=== PATIENT | female | born 1995 | race Caucasian/White ===

== ENCOUNTER 2020-09-16 13:50 | Inpatient (IN) | payer OTHER ==
[~2020-09-16 13:50] MED LIST: AUGMENTIN 875-1 EACH PO; BIRTH CONTROL PILL; CAPSAICIN60 GM TOP; CRUTCH1 EACH MISC; GABAPENTIN300 MG PO; GUAIATUSSIN AC118 ML PO; IBUPROFEN600 MG PO; IBUPROFEN800 MG PO; INDOMETHACIN25 MG PO; KEFLEX500 MG PO; NORCO 5-325 TA1 EACH PO; NUVARING VAGIN1 EACH VAGINAL; PERCOCET 5-3251 EACH PO; TRAZODONE HCL50 MG PO; XULANE PATCH1 EACH TD
--- NOTE | 2020-09-16 18:09 | NUR ---
RT COLLECTED COVID 19 SWAB WITH NO COMPLICATIONS. RT USED THE CEPHEID RAPID TEST THROUGH [facility] PER DR REQUEST AT THIS TIME.
--- NOTE | 2020-09-22 14:41 | PATH ---
[facility] [address], [place] [address] Signed SPECIMEN(S): A PLACENTA, 3RD TRIMESTER SPECIMEN SOURCE: A. PLACENTA, 3RD TRIMESTER CLINICAL HISTORY: Mother's age: 25. OB history: G1, P0. Gestational age: 40 05/27. Infant's weight: 6 pounds 1 ounce. score: 8/9. Rh positive. Antibody screen: negative. Maternal serologies: Rubella immune, RPR nonreactive, hepatitis screen negative, GBS negative. Specific issues of concern: IUGR. FINAL PATHOLOGIC DIAGNOSIS: Placenta, third trimester: - Mature 377 gram placenta (approximately 8th percentile for estimated gestational age) with three-vessel umbilical cord. - Negative for significant chorioamnionitis or funisitis. - Villous and perivillous fibrin deposition and calcification. - Negative for significant placental disc infarction. JVR:cml:C2NR MICROSCOPIC EXAMINATION: Histologic sections of all submitted blocks are examined by light microscopy. These findings, together with the gross examination, support the pathologic diagnosis. GROSS DESCRIPTION: The specimen, labeled "Minor Bergeron," and designated on the requisition "placenta," is received fresh and placed in formalin and consists of a salguero discoid placenta with the following parameters: Umbilical cord: Insertion paracentric, measurement 16.5 x 1.6 cm; trivascular. Cord coiling index (per 10 cm): One. Lesions: Not grossly identified. Membranes: Insertion site: Marginal, pink and translucent, rupture site grossly unremarkable. Intact. Other: Not grossly identified. Chorionic Plate: Normal radiating vascular pattern, blue-purple and shiny. Lesions: Not grossly identified. Other: Not grossly identified. Maternal Surface: Normal cotyledons, focally disrupted. Lesions: Not grossly identified. Measurement: 17.1 x 13.6 x 2.6 cm. Weight (trimmed): 377 g Cut Surface: Maroon and spongy. Lesions: Focal areas of calcifications. Basal PATIENT NAME: MINOR BERGERON PATHOLOGY DATE OF : 89 REPORT #: [id number] PHYSICIAN: DEXTER ERNANDEZ PCP: MAURICE ANDERSON REPORT IS CONFIDENTIAL AND NOT TO BE RELEASED WITHOUT AUTHORIZATION [facility] [address], [place] [address] Signed plate fibrin 0.1 cm in thickness. Other Findings: Not grossly identified. Cassette Summary: (A1) membranes and umbilical cord (A2) area of calcifications (A3) placenta parenchyma (A4) placenta parenchyma. FB (under the direct supervision of a pathologist) The Gross Description was prepared using a voice recognition system. The report was reviewed for accuracy; however, sound-alike word errors, addition and/or deletions may occur. If there is any question about this report, please contact Client Services. PERFORMING LABORATORY: The technical component was performed by [facility], [address] [place] [id number] (Senior [employer] Trader: Bianca Deal MD; CLIA# [id number]). Professional interpretation was performed by [facility], [facility], [address] [place] [id number]. Diagnostician: Star Gonzalez MD Pathologist Electronically Signed 09/22/2020 Copies: ~ PATIENT NAME: MINOR BERGERON PATHOLOGY DATE OF : [birth year] REPORT #: [id number] PHYSICIAN: DEXTER PATHOLOGY PCP: MAURICE ANDERSON REPORT IS CONFIDENTIAL AND NOT TO BE RELEASED WITHOUT AUTHORIZATION
== END 2020-09-19 15:30 | disposition home or self-care (01) | DRG 806 ==
LOC: FBC 13:50
PROVIDERS: ADMIT Obstetrics & Gynecology; ATTEND Obstetrics & Gynecology
PROC: 3E0P7VZ Introduction of Hormone into Female Reproductive, Via Natural or Artificial Opening (ICD-10-PCS; 2020-09-16)
PROC: 10E0XZZ Delivery of Products of Conception, External Approach (ICD-10-PCS; principal; 2020-09-17)
PROC: 0UQMXZZ Repair Vulva, External Approach (ICD-10-PCS; 2020-09-17)
PROC: 10907ZC Drainage of Amniotic Fluid, Therapeutic from Products of Conception, Via Natural or Artificial Opening (ICD-10-PCS; 2020-09-17)
PROC: 00HU33Z Insertion of Infusion Device into Spinal Canal, Percutaneous Approach (ICD-10-PCS; 2020-09-17)
PROC: 3E0R3BZ Introduction of Anesthetic Agent into Spinal Canal, Percutaneous Approach (ICD-10-PCS; 2020-09-17)
DX: O36.5930 Maternal care for other known or suspected poor fetal growth, third trimester, not applicable or unspecified (principal); O99.324 Drug use complicating childbirth; Z37.0 Single live birth; F11.20 Opioid dependence, uncomplicated; O99.354 Diseases of the nervous system complicating childbirth; Z20.822 Contact with and (suspected) exposure to COVID-19; Z3A.40 40 weeks gestation of pregnancy; G89.29 Other chronic pain; O99.313 Alcohol use complicating pregnancy, third trimester; F10.11 Alcohol abuse, in remission; O76 Abnormality in fetal heart rate and rhythm complicating labor and delivery; F12.90 Cannabis use, unspecified, uncomplicated; O71.82 Other specified trauma to perineum and vulva; O99.344 Other mental disorders complicating childbirth; F41.9 Anxiety disorder, unspecified; O99.334 Smoking (tobacco) complicating childbirth; F17.290 Nicotine dependence, other tobacco product, uncomplicated; Z88.5 Allergy status to narcotic agent; Z86.19 Personal history of other infectious and parasitic diseases
CPT/HCPCS: 01960; 36415; 80346; 85027; 88307; A9270; C9803; J2405; J2590; J2795; J3010; J7121; U0003

== ENCOUNTER 2022-01-16 17:30 | Emergency (ER) | payer OTHER ==
[~2022-01-16] VITALS: Ht 152.4 cm; Wt 57.5 kg
--- OUTSIDE RECORDS SUMMARY | 2022-01-16 17:32 | XMS ---
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 EAlee VISIT COUNT (12 MO.) 1 [facility] TOTAL 1 NOTE: Visits indicate total known visits. ED/UCC VISIT TRACKING (12 MO.) 01/16/2022 17:31 [facility] TYPE: Emergency COMPLAINT: - EYE PROBLEM INPATIENT VISIT TRACKING (12 MO.) No inpatient visits to display in this time frame [email or web address]
[2022-01-16] MEDS ORDERED: SUBOXONE 8 MG-1 EAC1 SL (18:16)
[2022-01-16] MEDS ORDERED: ONDANSETRON ODT8 MG PO (18:16)
[2022-01-16] MEDS ORDERED: CILOXAN5 ML OS (18:27)
== END 2022-01-16 18:48 | disposition home or self-care (01) ==
LOC: ED 17:30
DX: H10.9 Unspecified conjunctivitis (principal); F17.200 Nicotine dependence, unspecified, uncomplicated; Z88.5 Allergy status to narcotic agent; Z88.8 Allergy status to other drugs, medicaments and biological substances
CPT/HCPCS: 99282

== ENCOUNTER 2022-02-09 15:21 | Emergency (ER) | payer OTHER ==
[~2022-02-09] VITALS: Ht 157.5 cm; Wt 57.1 kg
[~2022-02-09 15:21] MED LIST changes: +CILOXAN5 ML OS; +ONDANSETRON ODT8 MG PO; +SUBOXONE 8 MG-1 EAC1 SL
--- OUTSIDE RECORDS SUMMARY | 2022-02-09 15:25 | XMS ---
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 EAlee VISIT COUNT (12 MO.) 2 [facility] TOTAL 2 NOTE: Visits indicate total known visits. ED/C VISIT TRACKING (12 MO.) 02/09/2022 15:22 [facility] [place] TYPE: Emergency COMPLAINT: - FLU SYMPTOMS 01/16/2022 17:31 [facility] [place] TYPE: Emergency COMPLAINT: - EYE PROBLEM DIAGNOSES: - Allergy status to narcotic agent - Unspecified conjunctivitis - Nicotine dependence, unspecified, uncomplicated - Allergy status to other drugs, medicaments and biological substances INPATIENT VISIT TRACKING (12 MO.) No inpatient visits to display in this time frame [email or web address]
[2022-02-09] MEDS ORDERED: ONDANSETRON ODT8 MG PO (16:07)
== END 2022-02-09 16:28 | disposition home or self-care (01) ==
LOC: ED 15:21
DX: U07.1 COVID-19 (principal); D64.9 Anemia, unspecified; F17.200 Nicotine dependence, unspecified, uncomplicated; Z88.5 Allergy status to narcotic agent; Z91.018 Allergy to other foods; Z79.899 Other long term (current) drug therapy
CPT/HCPCS: 99283; A9270